=== PATIENT | female | born 1985 | race Caucasian/White ===

== ENCOUNTER 2018-02-08 08:00 | Inpatient (IN) | payer OTHER ==
[~2018-02-08] VITALS: Ht 162.6 cm; Wt 3.2 kg
[2018-02-19] MEDS ORDERED: PRENATAL 19 TA1 EACH PO (10:21)
== END 2018-02-21 12:03 | DRG 788 ==
LOC: LDR 02-17 08:00 → OB/GYN 02-18 06:10 → LDR 02-18 20:08 → O/R 02-18 21:55 → LDR 02-18 22:04 → O/R 02-18 22:26 → OB/GYN 02-18 23:41
PROVIDERS: Specialist
PROC: 10907ZC Drainage of Amniotic Fluid, Therapeutic from Products of Conception, Via Natural or Artificial Opening (ICD-10-PCS; 2018-02-18)
PROC: 3E033VJ Introduction of Other Hormone into Peripheral Vein, Percutaneous Approach (ICD-10-PCS; 2018-02-18)
PROC: 4A1HXCZ Monitoring of Products of Conception, Cardiac Rate, External Approach (ICD-10-PCS; 2018-02-18)
PROC: 10D00Z1 Extraction of Products of Conception, Low, Open Approach (ICD-10-PCS; principal; 2018-02-18 21:00)
DX: O65.4 Obstructed labor due to fetopelvic disproportion, unspecified (principal); Z3A.40 40 weeks gestation of pregnancy; Z37.0 Single live birth

== ENCOUNTER 2018-12-23 13:18 | Emergency (ER) | payer OTHER ==
[~2018-12-23] VITALS: Ht 162.6 cm; Wt 61.2 kg
[~2018-12-23 13:18] MED LIST: PRENATAL 19 TA1 EACH PO
== END 2018-12-23 22:50 | disposition home or self-care (01) ==
LOC: ER 13:18
DX: N83.291 Other ovarian cyst, right side (principal); R10.32 Left lower quadrant pain

== ENCOUNTER 2022-05-23 14:37 | Outpatient (CLI) | payer OTHER | END 2022-05-23 16:03 | disposition home or self-care (01) | LOC: PRENATAL 14:37 | PROVIDERS: ATTEND Obstetrics & Gynecology Maternal & Fetal Medicine | DX: O35.9XX0 Maternal care for (suspected) fetal abnormality and damage, unspecified, not applicable or unspecified (principal); O35.3XX0 Maternal care for (suspected) damage to fetus from viral disease in mother, not applicable or unspecified; O34.219 Maternal care for unspecified type scar from previous cesarean delivery; Z3A.21 21 weeks gestation of pregnancy ==

== ENCOUNTER 2022-06-27 16:33 | Outpatient (CLI) | payer OTHER ==
[2022-06-27] MEDS ORDERED: PRENATAL TABLE1 EAC1 PO (16:52)
== END 2022-06-28 11:17 | disposition home or self-care (01) ==
LOC: OBS/DEL 16:33
PROVIDERS: ATTEND Obstetrics & Gynecology
DX: O60.02 Preterm labor without delivery, second trimester (principal); Z3A.26 26 weeks gestation of pregnancy

== ENCOUNTER 2022-09-07 14:36 | Outpatient (CLI) | payer OTHER ==
[~2022-09-07 14:36] MED LIST changes: +PRENATAL TABLE1 EAC1 PO
== END 2022-09-08 09:49 | disposition home or self-care (01) ==
LOC: OBS/DEL 14:36
PROVIDERS: ATTEND Obstetrics & Gynecology
DX: O09.523 Supervision of elderly multigravida, third trimester (principal); O16.3 Unspecified maternal hypertension, third trimester; Z3A.37 37 weeks gestation of pregnancy

== ENCOUNTER 2022-09-11 21:13 | Inpatient (IN) | payer OTHER ==
[~2022-09-11] VITALS: Ht 162.6 cm; Wt 3.2 kg
== END 2022-09-14 13:07 | disposition home or self-care (01) | DRG 785 ==
LOC: O/R 21:13 → LDR 21:13 → O/R 22:24 → OB/GYN 09-12 01:56
PROVIDERS: ADMIT Obstetrics & Gynecology; ATTEND Obstetrics & Gynecology
PROC: 0UB70ZZ Excision of Bilateral Fallopian Tubes, Open Approach (ICD-10-PCS; 2022-09-11)
PROC: 4A1HXCZ Monitoring of Products of Conception, Cardiac Rate, External Approach (ICD-10-PCS; 2022-09-11)
PROC: 10D00Z1 Extraction of Products of Conception, Low, Open Approach (ICD-10-PCS; principal; 2022-09-11 23:00)
DX: O34.211 Maternal care for low transverse scar from previous cesarean delivery (principal); Z3A.37 37 weeks gestation of pregnancy; Z30.2 Encounter for sterilization; Z20.822 Contact with and (suspected) exposure to COVID-19; Z37.0 Single live birth

== ENCOUNTER 2023-02-26 07:20 | Emergency (ER) | payer OTHER ==
[~2023-02-26] VITALS: Ht 162.6 cm; Wt 70.3 kg
[2023-02-26 09:21] LABS: HEMOGLOBIN 13.1 g/dL (12.0-15.00); MEAN CELL VOLUME 93.2 fL (80.00-100.00); MEAN CORPUSCULAR HEMOGLOBIN 32.1 pg (27.00-32.0); MEAN CORPUSCULAR HGB CONC 34.4 g/dl (32.0-36.0); PLATELET COUNT 173 K/uL (150-450); RED BLOOD COUNT 4.08 M/uL (4.00-6.00); RED CELL DISTRIBUTION WIDTH 13.9 % (11.5-14.5)
[2023-02-26 09:43] LABS: CALCIUM 8.7 mg/dL (8.5-10.1); CREATININE SERUM 0.72 mg/dL (0.55-1.02); GFR 91.65; POTASSIUM 3.91 mEq/L (3.5-5.1)
[2023-02-26 10:38] LABS: PH,URINE 6.5 (5.0-8.0); URINE APPEARANCE Clear; URINE BILIRRUBIN Negative (NEGATIVE); URINE BLOOD Moderate; URINE COLOR Yellow; URINE GLUCOSE Negative (NEGATIVE); URINE LEUKOCYTE Moderate; URINE NITRATE Negative; URINE PROTEIN Negative (NEGATIVE); URINE UROBILINOGEN 0.2 E.U./dl
[2023-02-26 10:44] LABS: URINE EPITHELIAL CELLS 49.3 uL (0.0-38.8); URINE WBC 116.7 uL (0.0-23.2)
== END 2023-02-26 15:44 | disposition home or self-care (01) ==
LOC: ER 07:20
PROVIDERS: Emergency Medicine
DX: K52.9 Noninfective gastroenteritis and colitis, unspecified (principal)